=== PATIENT | male | born 2000 | race African-American/Black ===

== ENCOUNTER 2022-07-10 16:13 | Emergency (ER) | payer OTHER, SELFPAY ==
[2022-07-10] VITALS (13 sets, daily range): BP systolic 120–140; BP diastolic 68–79; PULSE 52–74; RESP 11–25; TEMP 36.4; O2SAT 99–100
--- NOTE | ~2022-07-10 | XR_ITS ---
EXAMINATION: XR chest 2V DATE: 07/10/2022 22:30 INDICATION: Left-sided chest pain TECHNIQUE: PA and lateral views of the chest are obtained. COMPARISON: None available FINDINGS: The lungs are free of acute opacities. No pleural effusion or pneumothorax. The cardiomedia stinal silhouette is normal. The visualized bones and soft tissues are unremarkable. IMPRESSION: 1. No acute cardiopulmonary abnormality. Reviewed, dictated and finalized at location F. [facility]PER[facility]
--- NOTE | 2022-07-10 16:22 | ECG_ITS ---
Measurements Intervals [place] Rate: 53 P: 74 SC: 190 QRS: 21 QRSD: 86 T: -16 QT: 412 QTc: 390 Interpretive Statements SINUS BRADYCARDIA BORDERLINE ST-T WAVE ABNORMALITY- INFERIOR LEADS BASELINE ARTIFACT- I, II, III, AVR, AVL, AVF BORDERLINE ECG NO PREVIOUS ECG AVAILABLE FOR COMPARISON Electronically Signed On 07-10-2022 18:44:49 SAW FILER by Franklin Grey D.O.
--- NOTE | 2022-07-10 16:37 | PC.NURSE ---
patient refused blood collection in triage
[2022-07-10 21:48] LABS: Basophils Percent Auto 0.2 % (0.2-1.2); Eosinophils Absolute Auto 0.1 K/mm3 (0-0.3); Eosinophils Percent Auto 0.5 % (0-4.4); Hemoglobin 15.3 g/dL (14.0-18.0); Immature Granulocyte Absolute 0.03 K/mm3 (0.00-0.031); Immature Granulocyte Percent A 0.3 % (0-0.5); Lymphocytes Absolute Auto 3.48 K/mm3 (0.9-3.2); Lymphocytes Percent Auto 30.8 % (18.3-44.2); Mean Corpuscular HGB Conc 33.3 g/dl (32-36); Mean Corpuscular Volume 87.3 fl (80-100); Mean Platelet Volume 9.4 fl (7.4-10.4); Monocytes Absolute Auto 0.7 K/mm3 (0.1-0.6); Monocytes Percent Auto 6.5 % (2.6-8.5); Neutrophils Percent Auto 61.7 % (45.5-73.1); Platelet Count Result 224 k/mm3 (150-375); Red Blood Count 5.27 M/mm3 (4.6-6.20); Red Cell Distribution Width 13.2 % (11.5-14.5); White Blood Count 11.3 K/mm3 (4.5-10.0)
[2022-07-10 21:52] LABS: Alanine Aminotransferase 20 U/L (6-50); Alkaline Phosphatase 101 U/L (38-126); Anion Gap 8 mmol/L (8-16); Aspartate Amino Transferase 27 U/L (17-59); Bilirubin,Total 0.7 mg/dL (0.2-1.3); Blood Urea Nitrogen 10 mg/dL (9-20); Calcium 9.7 mg/dL (8.4-10.2); Carbon Dioxide 30 mmol/L (22-30); Chloride 99 mmol/L (98-107); Estimated CRCL calculation 121 ml/min; Estimated Glomerular Filt Rate > 60; Glucose 87 mg/dL (65-110); Lipase 173 U/L (23-300); Potassium 3.6 mmol/L (3.4-5.0); Sodium 137 mmol/L (137-145)
[2022-07-10 22:04] LABS: Troponin I < 0.012 ng/mL (0.000-0.034)
--- NOTE | 2022-07-10 22:16 | ED.GENADULT ---
HPI - General Adult General Chief complaint: Abdominal Pain Stated complaint: chest pain Time Seen by Provider: 07/10/22 20:59 Source: RN notes reviewed History of Present Illness HPI narrative: Patient presents emergency department from home for abdominal and chest pain. Patient states symptoms began yesterday after he ate rice and mixed it with spicy Cheetos. States he initially had pain and burning in his left upper abdomen that had moved into his left lower chest. States nothing seems to make the pain better or worse but he states he has been noticing has been belching. He denies any fevers or chills he denies any shortness of breath he denies any nausea vomiting diarrhea or any other symptoms. States he did not take anything for the symptoms Related Data Allergies Allergy/AdvReac Type Severity Reaction Status Date / Time No Known Allergies Allergy Unverified 06/18/18 21:03 Review of Systems Review of Systems: Gen.: Denies fevers or chills Eyes: Denies eye pain or visual change ENT: Denies congestion Respiratory: Denies shortness of breath or cough CV: Reports left-sided chest pain GI: Reports left upper abdominal pain, denies nausea vomiting or diarrhea Musculoskeletal: Denies back pain or muscle pain Neuro: Denies numbness, tingling, weakness or focal weakness Skin: Denies rash Except as documented, all other systems reviewed and negative [facility] Past Medical History Medical History (Updated 07/10/22 @ 22:57 by Francois Ash DO) Patient denies significant medical history Social History Social History (Updated 07/10/22 @ 22:17 by Francois Ash DO) Smoking status: Never smoker Exam Narrative: APPEARANCE: No acute distress, nontoxic, resting in bed EYES: EOMI HEENT: Normocephalic, atraumatic, OMM RESPIRATORY: No respiratory distress Clear to auscultation bilaterally with no rhonchi wheezing or rales. CARDIOVASCULAR: Regular rate and rhythm without murmurs rubs or gallops. ABDOMINAL: Soft, nondistended mild tenderness in the left upper quadrant no tenderness in the right upper quadrant, right lower quadrant left lower quadrant no rebound or guarding MUSCULOSKELETAl: Moves all extremities. No clubbing, cyanosis or edema. NEURO: Awake and alert. Following commands, speech normal, no focal deficits SKIN:: Warm, dry. No rashes lesions or abrasions PSYCHIATRIC: Normal affect/mood, Course Course Emergency Course: Patient meets PERC rule criteria and no further testing needs to be performed for pulmonary embolism. Patient states pain is resolved following GI cocktail Discussed with patient results of workup and diagnosis. Discussed need for follow-up with primary care, proper use of medication, and reasons to return to the emergency department. Patient understands and agrees to current treatment plan Vital Signs Vital signs: Vital Signs Temperature 97.6 F 07/10/22 16:15 Pulse Rate 74 07/10/22 16:15 Respiratory Rate 16 07/10/22 16:15 Blood Pressure 134/79 07/10/22 16:15 Pulse Oximetry 100 07/10/22 16:15 Temperature 97.6 F 07/10/22 16:15 Pulse Rate 55 L 07/10/22 22:02 Respiratory Rate 19 07/10/22 22:02 Blood Pressure 120/68 07/10/22 22:02 Pulse Oximetry 100 07/10/22 22:02 Medical Decision Making MDM Narrative Medical decision making narrative: Patient's EKGs and labs are without significant high risk changes. Cardiac risk factors reviewed. Patient is felt likely low risk for ACS and reasonable for further risk stratification testing as an outpatient. Patient with negative troponin with pain ongoing for over 24 hours pain was not sudden or maximal in onset without tearing or ripping quality. No other signs of symptoms suggest aortic dissection. A low-risk Wells criteria is noted, PE is felt to be unlikely. No pneumonia seen on evaluation today. Pain with and left upper quadrant after eating spicy Cheetos GI cocktail given with resolution of pain. Patient is fe
== END 2022-07-10 23:12 | disposition home or self-care (01) ==
PROVIDERS: Emergency Medicine; Emergency Provider Emergency Medicine
DX: K21.9 Gastro-esophageal reflux disease without esophagitis (principal); R07.89 Other chest pain; R00.1 Bradycardia, unspecified; R94.31 Abnormal electrocardiogram [ECG] [EKG]
CPT/HCPCS: 36415; 71046; 80053; 83690; 84484; 85025; 93005; 99283; 99284; A9270

== ENCOUNTER 2024-02-28 20:37 | Emergency (ER) | payer OTHER, SELFPAY ==
--- NOTE | ~2024-02-28 | CT_ITS ---
CT Facial Bones Clinical Indication: Trauma Technique: Contiguous axial scans were obtained through the facial bones followed by coronal and sagi ttal reconstructions. Dose reduction technique was used on this scan by utilizing automated exposure control and iterative reconstruction technique. The dose-length product (DLP) was 427.44 mGy-cm. Findings: No fractures are identified. The visualized paranasal sinuses are clear. Intraorbital soft tissues appear normal. There is extensive left periorbital soft tissue swelling/hematoma. Impression: No fracture identified. Extensive left periorbital soft tissue swelling/hematoma. Reviewed, dictated and finalized at location . Impression: No fracture identified. Extensive left periorbital soft tissue swelling/hematoma.
[2024-02-28 20:43] VITALS: BP 121/71; PULSE 83; RESP 15; TEMP 36.6; O2SAT 100
[2024-02-28 22:13] VITALS: BP 126/73; PULSE 73; RESP 15; TEMP 36.5; O2SAT 98
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
[2024-02-28] MEDS: IBUPROFEN 600 MG TABLET PO (22:51)
== END 2024-02-29 03:49 | disposition left against medical advice (07) ==
PROVIDERS: Emergency Provider Physician Assistant
DX: S00.12XA Contusion of left eyelid and periocular area, initial encounter (principal); Y08.89XA Assault by other specified means, initial encounter
CPT/HCPCS: 70486; 99284; A9270